=== PATIENT | male | born 1980 | race Caucasian/White ===

== ENCOUNTER 2019-04-19 16:45 | Outpatient (REF) | payer SELFPAY | END 2019-04-19 17:05 | LOC: NCHCN 16:45 | PROVIDERS: PCP Internal Medicine; Visit Provider Internal Medicine | DX: L04.9 Acute lymphadenitis, unspecified (principal) | CPT/HCPCS: 87077; 87070; 87186; 87205 ==

== ENCOUNTER 2020-04-23 08:18 | Outpatient (REF) | payer BC, SELFPAY ==
[2020-04-23 19:12] LABS: HCT 44.1 % (40.0-50.0); HGB 15.1 g/dL (13.5-17.5); Mean Corp. HGB Concentration 34.2 g/dL (32.0-36.0); Mean Corpuscular Hemoglobin 30.9 pg (27.0-33.0); Mean Corpuscular Volume 90.2 fL (80-95); Mean Platelet Volume 10.3 fL (8.0-11.0); Platelet Count 309 x1000/uL (130-400); RBC 4.89 m/cumm (4.50-6.00); RBC Distribution Width 12.6 % (11.8-14.1); White Blood Cell Count 4.11 k/cumm (4.4-10.8)
[2020-04-23 19:25] LABS: ALT 36 U/L (16-63); AST 20 U/L (15-37); Albumin 3.9 g/dL (3.4-5.0); Alkaline Phosphatase 107 U/L (46-116); Anion Gap 9.5 mmol/L (3-11); BUN 17 mg/dL (7-18); Bilirubin, Total 0.2 mg/dL (0.2-1.0); CO2 25.5 mmol/L (21.0-32.0); CREATININE 1.12 mg/dL (0.70-1.30); Calcium 8.9 mg/dL (8.5-10.1); Calculated LDL 183 mg/dL (<100); Chloride 106 mmol/L (98-107); Cholesterol 268 mg/dL (<200); Glucose 111 mg/dL (74-106); HDL Cholesterol 27 mg/dL (40-60); Potassium 4.5 mmol/L (3.5-5.1); Sodium 141 mmol/L (136-145); TSH (W/Ref FT4) 2.14 uIU/mL (0.36-3.74); Total Protein 6.8 g/dL (6.4-8.2); Triglyceride 292 mg/dL (<150)
[2020-04-23 19:29] LABS: Hemoglobin A1C 5.3 % (3.8-5.6)
[2020-04-23 19:38] LABS: Absolute Lymphocyte Count 1.48 k/cumm (1.2-3.4); Absolute Neutrophil Count 1.93 k/cumm (1.2-6.7); Atypical Lymphocytes % 2
[2020-04-23 19:39] LABS: Absolute Eosinophil Count 0.12 k/cumm (0.0-0.7); Absolute Monocyte Count 0.58 k/cumm (0.11-0.7); Diff Comment Manual Differential; RBC Morphology Normal
== END 2020-04-23 08:38 ==
LOC: NCHCN 08:18
PROVIDERS: PCP Internal Medicine; Visit Provider Physician Assistant
DX: Z00.00 Encounter for general adult medical examination without abnormal findings (principal); R73.03 Prediabetes; M77.12 Lateral epicondylitis, left elbow; E78.5 Hyperlipidemia, unspecified; I10 Essential (primary) hypertension; Z13.89 Encounter for screening for other disorder
CPT/HCPCS: 80053; 80061; 83036; 84443; 85025

== ENCOUNTER 2021-04-13 09:17 | Outpatient (REF) | payer BC, SELFPAY ==
[2021-04-13 19:46] LABS: Abs Immature Grans 0.01 10^3/uL (0.0-0.06); Absolute Basophil Count 0.05 10^3/uL (0.0-0.2); Absolute Eosinophil Count 0.18 10^3/uL (0.0-0.7); Absolute Lymphocyte Count 1.55 10^3/uL (1.2-3.4); Absolute Monocyte Count 0.58 10^3/uL (0.1-0.8); Absolute Neutrophil Count 2.44 10^3/uL (1.2-6.7); Eosinophils % 3.7; HCT 43.5 % (40.0-50.0); HGB 14.7 g/dL (13.5-17.5); Immature Grans % 0.2; Lymphocytes % 32.2; MCH 30.9 pg (27.0-33.0); MCHC 33.8 % (32.0-36.0); MCV 91.4 fL (80-95); MPV 10.7 fL (8.0-11.0); Monocytes % 12.1; Neutrophils % 50.8; Nucleated RBC 0 %; Platelet Count 294 10^3/uL (130-400); RBC 4.76 10^6/uL (4.36-5.78); RDW 11.8 % (11.8-14.1); RDW-SD 39.7 fL; WBC 4.81 10^3/uL (4.4-10.8)
[2021-04-13 19:59] LABS: ALT 49 U/L (16-63); AST 25 U/L (15-37); Albumin 3.8 g/dL (3.4-5.0); Alkaline Phosphatase 106 U/L (46-116); Anion Gap 10.2 mmol/L (3-11); BUN 13 mg/dL (7-18); Bilirubin, Total 0.2 mg/dL (0.2-1.0); CO2 24.8 mmol/L (21.0-32.0); CREATININE 1.2 mg/dL (0.70-1.30); Calcium 8.6 mg/dL (8.5-10.1); Calculated LDL 105 mg/dL (<100); Chloride 107 mmol/L (98-107); Cholesterol 167 mg/dL (<200); Glucose 114 mg/dL (74-106); HDL Cholesterol 31 mg/dL (40-60); Potassium 4.6 mmol/L (3.5-5.1); Sodium 142 mmol/L (136-145); Total Protein 6.6 g/dL (6.4-8.2); Triglyceride 158 mg/dL (<150)
[2021-04-13 20:16] LABS: Hemoglobin A1C 5.7 % (<5.7)
== END 2021-04-13 09:18 | disposition home or self-care (01) ==
LOC: NCHCN 09:17
PROVIDERS: PCP Internal Medicine; Visit Provider Physician Assistant
DX: I10 Essential (primary) hypertension (principal); E78.5 Hyperlipidemia, unspecified; Z13.1 Encounter for screening for diabetes mellitus; G47.33 Obstructive sleep apnea (adult) (pediatric)
CPT/HCPCS: 80053; 80061; 83036; 85025

== ENCOUNTER 2022-06-08 16:55 | Outpatient (REF) | payer BC, SELFPAY ==
[2022-06-08 20:34] LABS: Anion Gap 8.2 mmol/L (3-11); BUN 17 mg/dL (7-18); CO2 28.8 mmol/L (21.0-32.0); CREATININE 1.1 mg/dL (0.70-1.30); Calcium 8.7 mg/dL (8.5-10.1); Chloride 105 mmol/L (98-107); Glucose 98 mg/dL (74-106); Sodium 142 mmol/L (136-145)
[2022-06-08 20:41] LABS: Potassium 4.8 mmol/L (3.5-5.1)
== END 2022-06-08 16:56 | disposition home or self-care (01) ==
LOC: NCHCN 16:55
PROVIDERS: PCP Internal Medicine; Visit Provider Physician Assistant
DX: I10 Essential (primary) hypertension (principal); Z00.00 Encounter for general adult medical examination without abnormal findings
CPT/HCPCS: 80048

== ENCOUNTER 2023-01-06 20:06 | Outpatient (REF) | payer BC, SELFPAY ==
[2023-01-06 20:24] LABS: Abs Immature Grans 0.02 10^3/uL (0.0-0.06); Absolute Basophil Count 0.06 10^3/uL (0.0-0.2); Absolute Eosinophil Count 0.24 10^3/uL (0.0-0.7); Absolute Lymphocyte Count 1.66 10^3/uL (1.2-3.4); Absolute Monocyte Count 0.47 10^3/uL (0.1-0.8); Absolute Neutrophil Count 2.47 10^3/uL (1.2-6.7); Basophils % 1.2; Eosinophils % 4.9; HCT 40.7 % (40.0-50.0); HGB 14.1 g/dL (13.5-17.5); Immature Grans % 0.4; Lymphocytes % 33.7; MCH 31.5 pg (27.0-33.0); MCHC 34.6 % (32.0-36.0); MCV 91 fL (80-95); MPV 10.9 fL (8.0-11.0); Monocytes % 9.6; Neutrophils % 50.2; Platelet Count 281 10^3/uL (130-400); RBC 4.47 10^6/uL (4.36-5.78); RDW 12.2 % (11.8-14.1); RDW-SD 40.2 fL; WBC 4.92 10^3/uL (4.4-10.8)
[2023-01-06 20:58] LABS: Vitamin D 25 Total 14.2 ng/mL (30-100)
[2023-01-06 21:01] LABS: ALT 53 U/L (16-63); AST 31 U/L (15-37); Albumin 3.9 g/dL (3.4-5.0); Alkaline Phosphatase 100 U/L (46-116); Anion Gap 6.1 mmol/L (3-11); BUN 11 mg/dL (7-18); Bilirubin, Total 0.2 mg/dL (0.2-1.0); CO2 28.9 mmol/L (21.0-32.0); CREATININE 1.2 mg/dL (0.70-1.30); Calcium 8.7 mg/dL (8.5-10.1); Chloride 108 mmol/L (98-107); Glucose 126 mg/dL (74-106); Sodium 143 mmol/L (136-145); TSH (W/Ref FT4) 1.11 uIU/mL (0.36-3.74); Vitamin B12 813 pg/mL (193-986)
[2023-01-09 11:04] LABS: PSA, Screening 0.4 ng/mL (<=2.5)
== END 2023-01-06 20:07 | disposition home or self-care (01) ==
LOC: NCHCN 20:06
PROVIDERS: PCP Internal Medicine; Visit Provider Physician Assistant
DX: R53.83 Other fatigue (principal); I10 Essential (primary) hypertension; R35.0 Frequency of micturition; Z12.5 Encounter for screening for malignant neoplasm of prostate; E55.9 Vitamin D deficiency, unspecified; R73.09 Other abnormal glucose
CPT/HCPCS: 80053; 82306; 84153; 82607; 84443; 85025

== ENCOUNTER 2023-06-21 17:42 | Outpatient (REF) | payer BC, SELFPAY ==
[2023-06-21 20:29] LABS: ALT 54 U/L (16-63); AST 31 U/L (15-37); Albumin 4.2 g/dL (3.4-5.0); Anion Gap 6.6 mmol/L (3-11); BUN 13 mg/dL (7-18); Bilirubin, Total 0.5 mg/dL (0.2-1.0); CO2 30.4 mmol/L (21.0-32.0); CREATININE 1.1 mg/dL (0.70-1.30); Chloride 104 mmol/L (98-107); Estimated GFR 87.03 (mL/min/1.73m2); Glucose 93 mg/dL (74-106); Sodium 141 mmol/L (136-145); Total Protein 7.3 g/dL (6.4-8.2)
[2023-06-21 20:45] LABS: Alkaline Phosphatase 85 U/L (46-116)
== END 2023-06-21 17:43 | disposition home or self-care (01) ==
LOC: NCHCN 17:42
PROVIDERS: PCP Internal Medicine; Visit Provider Physician Assistant
DX: Z00.00 Encounter for general adult medical examination without abnormal findings (principal); I10 Essential (primary) hypertension
CPT/HCPCS: 80053

== ENCOUNTER 2024-07-03 18:22 | Outpatient (REF) | payer BC, SELFPAY ==
[2024-07-03 19:49] LABS: Abs Immature Grans 0.02 10^3/uL (0.0-0.06); Absolute Basophil Count 0.08 10^3/uL (0.0-0.2); Absolute Eosinophil Count 0.37 10^3/uL (0.0-0.7); Absolute Lymphocyte Count 1.37 10^3/uL (1.2-3.4); Absolute Monocyte Count 0.48 10^3/uL (0.1-0.8); Basophils % 1.5 %; Eosinophils % 7.1 %; HCT 44.3 % (40.0-50.0); HGB 14.9 g/dL (13.5-17.5); Immature Grans % 0.4 %; Lymphocytes % 26.2 %; MCH 31.8 pg (27.0-33.0); MCHC 33.6 % (32.0-36.0); MCV 95 fL (80-95); MPV 10.2 fL (8.0-11.0); Monocytes % 9.2 %; Neutrophils % 55.6 %; Platelet Count 287 10^3/uL (130-400); RBC 4.69 10^6/uL (4.36-5.78); RDW 12.3 % (11.8-14.1); RDW-SD 42.8 fL; WBC 5.22 10^3/uL (4.4-10.8)
[2024-07-03 20:28] LABS: ALT 50 U/L (16-63); AST 30 U/L (15-37); Albumin 4.1 g/dL (3.4-5.0); Alkaline Phosphatase 75 U/L (46-116); BUN 18 mg/dL (7-18); Bilirubin, Total 0.36 mg/dL (0.2-1.0); CREATININE 1.2 mg/dL (0.70-1.30); Calcium 8.7 mg/dL (8.5-10.1); Calculated LDL 103 mg/dL (<100); Chloride 105 mmol/L (98-107); Cholesterol 186 mg/dL (<200); Estimated GFR 77.43 (mL/min/1.73m2); Glucose 108 mg/dL (74-106); HDL Cholesterol 69 mg/dL (40-60); Potassium 4.2 mmol/L (3.5-5.1); Sodium 142 mmol/L (136-145); TSH (W/Ref FT4) 2.63 uIU/mL (0.36-3.74); Total Protein 7.1 g/dL (6.4-8.2); Triglyceride 73 mg/dL (<150)
[2024-07-04 19:22] LABS: Hepatitis C Ab w Rflx HCV PCR Negative (Negative)
[2024-07-04 19:39] LABS: HIV-1/2 Ag & Ab Screen Negative (Negative)
== END 2024-07-03 18:23 | disposition home or self-care (01) ==
LOC: NCHCN 18:22
PROVIDERS: PCP Internal Medicine; Visit Provider Physician Assistant
DX: E55.9 Vitamin D deficiency, unspecified (principal); Z11.59 Encounter for screening for other viral diseases; E78.5 Hyperlipidemia, unspecified; R63.4 Abnormal weight loss
CPT/HCPCS: 80053; 80061; 82306; 86803; 87389; 84443; 85025

== ENCOUNTER 2025-09-09 09:06 | Day surgery (SDC) | payer BC, SELFPAY ==
--- NOTE | 2025-09-09 07:24 | W.PM.DSUDISC ---
Date of service: 09/09/25 Discharge Plan Disposition Patient Disposition: Home Condition: Good Discharge Details Reason For Visit: Bilateral carpal tunnel syndrome Attending Provider: Wicho Russell Primary Care Provider: Reilly Vee Home Meds and New Rx's Prescriptions: New acetaminophen 500 mg tablet 500 mg PO Q6H PRN (Reason: pain) Qty: 60 2RF hydrocodone-acetaminophen 5-325 mg tablet 1 tab PO Q6H PRN (Reason: severe pain) Qty: 6 0RF Rx Instructions: Take one tablet up to every 6 hours as needed for severe postoperative pain ibuprofen 600 mg tablet 600 mg PO TID PRN (Reason: pain) Qty: 60 0RF Continued atorvastatin [Lipitor] 20 mg tablet 20 mg PO DAILY lisinopril 10 mg tablet 10 mg PO DAILY Discharge Instructions Stand Alone Forms: Drew العراقي Tunnel Release, Magaly Greenberg (DSU), Portal Information Referrals: Wicho Russell MD [ [facility] STAFF PHYSICIAN, Orthopaedic Surgical] - 09/22/25 10:30 am Activity:: Elevate Remove Dressings/Wound Care:: 48 hours Shower/Bathe:: 48 hours Diet:: As Tolerated Discharge Orders Discharge Orders: Discharge Order (Routine); Ordered 09/09/25 Ordered By: Debbi Crenshaw
[2025-09-09 09:28] VITALS: BP 132/78; PULSE 67; RESP 16; TEMP 36.7; O2SAT 99
[2025-09-09] MEDS: Cephalexin 500 MG CAP 1000 MG PO (09:34)
[2025-09-09 12:15] VITALS: BP 134/70; PULSE 54; RESP 16; TEMP 36.5; O2SAT 98
[2025-09-09] MEDS: Sodium Bicarbonate 50 MEQ/50 ML VIAL (12:15)
[2025-09-09] MEDS: Lidocaine 1% Pres-Free W/EPI 1/200,000 10 ML VIAL (12:15)
--- NOTE | 2025-09-09 12:25 | W.PM.OP ---
Operative Note Operative Note PRE-OP DIAGNOSIS: Bilateral Carpal Tunnel Syndrome POST-OP DIAGNOSIS: same PROCEDURE: Left and Right Endoscopic Carpal Tunnel Release SURGEON: Wicho Russell ANESTHESIA TYPE: Local By Surgeon Refer to Anesthesia Record ESTIMATED BLOOD LOSS: 0 PATHOLOGY: none sent TOURNIQUET TIME: 6 COMPLICATIONS: None Patient was transported to: same day Patient's condition: stable Indications: I have seen Claude in clinic for symptoms of bilateral carpal tunnel syndrome. The numbness, tingling, and pain limited function. Clinical exam findings confirmed the diagnosis of carpal tunnel syndrome. Nonoperative measures such as bracing, time, activity modifications had been tried but disability and pain persisted. I discussed carpal tunnel release with the patient. I reviewed the risks of the procedure to include, but not limited to, bleeding, infection, pain, stiffness, incomplete release, damage to nerves or vessels, persistent numbness, recurrence. Despite these risks, the patient elected to proceed. Findings: There was tightened carpal tunnel of both wrists with some synovitis. This was dilated and released successfully with the endoscopic with increased space within the tunnel. The antebrachial fascia was released proximally freeing the median nerve at the wrist. Procedure Description: Claude was greeted in the preoperative holding area where the correct side was identified and marked. The consent was reviewed with the patient and signed. The history and physical was updated. All questions were answered. He was taken back to the operating room. The patient was placed into the supine position on the operating room table with the left arm on an arm board. A nonsterile tourniquet was placed high onto the arm. All bony prominences were well padded. Prophylactic antibiotics in the form of Cephalexin were administered in DSU. The left arm was then prepped with Chloraprep and draped in a standard fashion with stockinette and extremity drape. A timeout to confirm correct identity, side and site, procedure, allergies, anesthesia, and medical concerns was performed. The surgical site was marked in the volar wrist creases in line with the radial border of the fourth ray. This area was anesthetized with approximately 10cc of 1% Lidocaine with Epinephrine, buffered with Sodium Bicarbonate. The limb was then exsanguinated with an Esmarch. The skin was incised with a 15 blade, approximately 1cm. The skin only was cut and the deeper tissue was dissected bluntly with a tenotomy scissor, avoiding passing nerve and venous structures. The fascia was penetrated and opened bluntly. A two-prong skin hook was placed under this proximal fascial edge. A series of hamate finders were used to identify and dilate the carpal tunnel. Synovial elevator was used to free synovial attachments to the underside of the transverse carpal ligament. My thumb was kept in the palm to deshaun the distal extent of the carpal tunnel and correctly position the hand. The Microaire endoscope was inserted without difficulty and without resistance. Excellent visualization showed horizontally running fibers of the transverse carpal ligament (TCL). The distal extent of the TCL was visualized and the end of the scope palpated with the thumb. The blade was elevated and withdrawn from distal to proximal. The TCL was split into two flaps. The endoscope was reinserted to confirm complete release and any remnant ligament was incised. The scope was withdrawn and the proximal aspect of the carpal tunnel was grossly inspected and appeared release with the median nerve visible. The antebrachial fascia at the level of the wrist was then freed from the overlying skin and then the underlying median nerve with blunt dissection. This was transected longitudinally for about 3cm proximal to the wrist incision. The wound was then irrigated with easy flow of irrigant distally and proximally. The incision was closed with a single 4-0 Nylon suture. The wound was dressed with Xeroform, Gauze, Kerlix and Francis. The tourniquet was deflated with the initial dressing and held with some pressure. Blood flow returned easily to all digits with capillary refill less than 2 seconds. The stretcher was rotated and the right arm was placed onto a hand table. Then, the right arm was then prepped with Chloraprep and draped in a standard fashion with stockinette and extremity drape. A timeout to confirm correct identity, side and site, procedure, allergies, anesthesia, and medical concerns was performed. The surgical site was marked in the volar wrist creases in line with the radial border of the fourth ray. This area was anesthetized with approximately 10cc of 1% Lidocaine with Epinephrine, buffered with Sodium Bicarbonate. The limb was then exsanguinated with an Esmarch. The skin was incised with a 15 blade, approximately 1cm. The skin only was cut and the deeper tissue was dissected bluntly with a tenotomy scissor, avoiding passing nerve and venous structures. The fascia was penetrated and opened bluntly. A two-prong skin hook was placed under this proximal fascial edge. A series of hamate finders were used to identify and dilate the carpal tunnel. Synovial elevator was used to free synovial attachments to the underside of the transverse carpal ligament. My thumb was kept in the palm to deshaun the distal extent of the carpal tunnel and correctly position the hand. The Microaire endoscope was inserted without difficulty and without resistance. Excellent visualization showed horizontally running fibers of the transverse carpal ligament (TCL). The distal extent of the TCL was visualized and the end of the scope palpated with the thumb. The blade was elevated and withdrawn from distal to proximal. The TCL was split into two flaps. The endoscope was reinserted to confirm complete release and any remnant ligament was incised. The scope was withdrawn and the proximal aspect of the carpal tunnel was grossly inspected and appeared release with the median nerve visible. The antebrachial fascia at the level of the wrist was then freed from the overlying skin and then the underlying median nerve with blunt dissection. This was transected longitudinally for about 3cm proximal to the wrist incision. The wound was then irrigated with easy flow of irrigant distally and proximally. The incision was closed with a single 4-0 Nylon suture. The wound was dressed with Xeroform, Gauze, Kerlix and Francis. The tourniquet was deflated with the initial dressing and held with some pressure. Blood flow returned easily to all digits with capillary refill less than 2 seconds. The patient tolerated the procedure well and was returned to the Same Day Surgery area in a stable condition suffering no known complication. Date of Procedure: 09/09/25
== END 2025-09-09 12:21 | disposition home or self-care (01) ==
LOC: SUR 09:06
PROVIDERS: PCP Internal Medicine; Visit Provider Student in an Organized Health Care Education/Training Program
PROC: 01N54ZZ Release Median Nerve, Percutaneous Endoscopic Approach (ICD-10-PCS; CPT 29848; principal; 2025-09-09 10:00)
DX: G56.03 Carpal tunnel syndrome, bilateral upper limbs (principal)
CPT/HCPCS: 29848; J2004

== ENCOUNTER 2025-10-15 10:32 | Outpatient (REF) | payer BC, SELFPAY ==
[2025-10-15 18:34] LABS: Cholesterol 155 mg/dL (<200); HDL Cholesterol 62 mg/dL (>or=40)
== END 2025-10-15 10:33 | disposition home or self-care (01) ==
LOC: NCHCN 10:32
PROVIDERS: PCP Internal Medicine; Visit Provider Physician Assistant
DX: I10 Essential (primary) hypertension (principal)
CPT/HCPCS: 80061